=== PATIENT | female | born 1995 | race Caucasian/White ===

== ENCOUNTER 2016-10-10 20:01 | Emergency (ER) | payer MEDICAID ==
[~2016-10-10] VITALS: Ht 154.9 cm; Wt 52.2 kg
[2016-10-10 20:01] VITALS: BP_SYST 111
[2016-10-10] MEDS ORDERED: IBUPROFEN 600 MG TABLET PO ONE (21:30)
[2016-10-10 21:40] VITALS: BP_SYST 112
== END 2016-10-10 21:40 | disposition home or self-care (01) ==
LOC: SED 20:01
DX: S63.502A Unspecified sprain of left wrist, initial encounter (principal); X50.0XXA Overexertion from strenuous movement or load, initial encounter; X50.9XXA Other and unspecified overexertion or strenuous movements or postures, initial encounter; Y93.43 Activity, gymnastics; Y92.39 Other specified sports and athletic area as the place of occurrence of the external cause; Y99.8 Other external cause status
CPT/HCPCS: 81025; 99284

== ENCOUNTER 2021-02-09 08:12 | Emergency (ER) | payer OTHER, MEDICAID ==
[~2021-02-09] VITALS: Ht 154.9 cm; Wt 68.0 kg
--- NOTE | 2021-02-09 08:15 | NUR ---
Placed in room 3 . Placed on sales operations lead, blood pressure machine and pulse oximeter. To gown for exam. Side rails up.
[2021-02-09 08:20] VITALS: BP_SYST 124
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
--- NOTE | 2021-02-09 08:25 | NUR ---
ER DR. LONGORIA AT THE BEDSIDE EXAMINING PT
--- NOTE | 2021-02-09 08:40 | NUR ---
PORTABLE X-RAY AT THE BEDSIDE
[2021-02-09] MEDS ORDERED: NAPR-688 PO (09:03)
[2021-02-09] MEDS ORDERED: TRAM50TA PO (09:03)
[2021-02-09 09:12] VITALS: BP_SYST 102
--- NOTE | 2021-02-09 09:12 | NUR ---
Patient given written and verbal discharge instructions and verbalizes understanding. ER MD discussed with patient the results and treatment provided. Patient in stable condition. ID arm band removed. Rx of NAPROXEN AND TRAMADOL given. Patient educated on pain management and to follow up with PMD. Pain Scale 3/10. Opportunity for questions provided and answered. Medication side effect fact sheet provided.
== END 2021-02-09 09:12 | disposition home or self-care (01) ==
LOC: SED 08:12
DX: S80.02XA Contusion of left knee, initial encounter (principal); S09.90XA Unspecified injury of head, initial encounter; Z79.899 Other long term (current) drug therapy; V49.49XA Driver injured in collision with other motor vehicles in traffic accident, initial encounter; Y93.89 Activity, other specified; Y92.89 Other specified places as the place of occurrence of the external cause; Y99.8 Other external cause status
CPT/HCPCS: 73564; 99283